=== PATIENT | male | born 1970 | race African-American/Black ===

== ENCOUNTER 2016-11-28 09:29 | Inpatient (IN) | payer OTHER ==
[~2016-11-28] VITALS: Ht 185.4 cm; Wt 108.4 kg
[~2016-11-28 09:29] MED LIST: ASACOL HD800 MG ORAL; DILAUDID4 MG ORAL; HYDROMORPHONE HC4 M1 PO; LEVAQUIN500 MG ORAL; METRONIDAZOLE500 MG ORAL; NKM; ONDANSETRON ODT4 MG ORAL; PERCOCET1 TAB ORAL; PREDNISOLO15 MG/5 M1 ORAL; PREDNISONE20 MG ORAL; ZOFRAN ODT4 MG ORAL
--- NOTE | 2016-11-28 09:50 | Emergency Room Report ---
History of Present Illness General Chief Complaint: Abdominal Pain Source: Patient, Medical Record Present Illness HPI Patient presents with abdominal pain and vomiting. He also has loose stools, though denies bloody diarrhea. He has a history of Crohn's disease. He stopped the prednisone taper 2 weeks ago. Denies any blood in his stool. He's not had any fevers. The pain is severe this morning and right lower quadrant. He is status post appendectomy. Not vomiting blood but difficulty keeping down food or liquids. Is not taking any medication for his Crohn's at the moment. Unable to keep down any pain medication. R flank and CVA area radiates down back. Pain is severe 10/10 constant. He was last hospitalized in [place] around [facility], [place]. No URI sy, chest pain, cough, rashes, headache. The pain causes him to be anxious. Allergies: Coded Allergies: MORPHINE (Verified Allergy, Unknown, 11/28/16) KETOROLAC TROMETHAMINE (Unverified Adverse Reaction, Unknown, TACHYCARDIA , 09/28/14) Patient History Past Medical History: see triage record Past Surgical History: other - abdominal surgery Social History Narrative with sig other Reviewed Nursing Documentation: PMH: Agreed, PSxH: Agreed Nursing Documentation-PMH Past Medical History: No History, Except For Hx Cardiac Problems: No Hx Cancer: No Hx Gastrointestinal Problems: Yes - Crohns Hx Neurological Problems: No Review of Systems All Other Systems: negative except mentioned in HPI Physical Exam Vital Signs Date Time Temp Pulse Resp B/P Pulse Ox O2 Delivery O2 Flow Rate FiO2 11/28/16 09:30 97.5 50 17 144/88 99 Room Air Sp02 EP Interpretation: reviewed, normal General Appearance: GCS 15, non-toxic, severe distress, other - writhing in pain Head: normocephalic, atraumatic Eyes: bilateral eye EOMI, bilateral eye PERRL, bilateral eye normal inspection ENT: moist mucus membranes Neck: supple Respiratory: chest non-tender, lungs clear, normal breath sounds Cardiovascular #1: regular rate, rhythm Cardiovascular #2: 2+ radial (R) Gastrointestinal: soft, non-distended, no guarding, tenderness Musculoskeletal: back normal, gait/station normal, normal range of motion Neurologic: alert, oriented x3, grossly normal Psychiatric: anxious - and in pain Skin: normal inspection, warm/dry Medical Decision Making Diagnostic Impression: Primary Impression: Crohn's colitis Qualified Codes: K50.10 - Crohn's disease of large intestine without complications Additional Impressions: Microscopic hematuria Possible narcoic seeking behavior ER Course Patient presents with severe abdominal pain -RLQ with h/o Crohn's disease. Ddx ; PUD, diverticulitis, UTI, exacerbation of Crohn's, gastroenteritis, opiate seeking amongst others. Severe pain need emergent evaluation with labs, UA, xrays. Treatment with solumedrol, IV hydration and analgesia. Solumedrol given for crohns. IV hydration. Labs significant for normal WBC and H/H. Patient still with significant pain. Unable to perform x-rays due to writhing in pain. Abd film unremarkable. Patient requiring high doses of dilaudid for pain control. Due to hematuria and pain, CT ordered with IV and PO contrast. Patient had some vomiting after po contrast. Generally improved. Needs observation due to pain and Crohn's. Admit med Dr. Pérez. Laboratory Tests Test 11/28/16 10:10 White Blood Count 8.5 K/UL (4.8-10.8) Red Blood Count 5.13 M/UL (4.70-6.10) Hemoglobin 15.7 G/DL (14.2-18.0) Hematocrit 47.0 % (42.0-52.0) Mean Corpuscular Volume 92 FL (80-99) Mean Corpuscular Hemoglobin 30.6 PG (27.0-31.0) Mean Corpuscular Hemoglobin Concent 33.4 G/DL (32.0-36.0) Red Cell Distribution Width 11.6 % (11.6-14.8) Platelet Count 165 K/UL (150-450) Mean Platelet Volume 7.2 FL (6.5-10.1) Neutrophils (%) (Auto) % (45.0-75.0) Lymphocytes (%) (Auto) % (20.0-45.0) Monocytes (%) (Auto) % (1.0-10.0) Eosinophils (%) (Auto) % (0.0-3.0) Basophils (%) (Auto) % (0.0-2.0) Differential Total Cells Counted 100 Neutrophils % (Manual) 86 % (45-75) H Lymphocytes % (Manual) 7 % (20-45) L Monocytes % (Manual) 7 % (1-10) Eosinophils % (Manual) 0 % (0-3) Basophils % (Manual) 0 % (0-2) Band Neutrophils 0 % (0-8) Platelet Estimate Adequate Platelet Morphology Normal Red Blood Cell Morphology Normal Prothrombin Time 10.0 SEC (9.30-11.50) Prothrombin Time INR 1.0 (0.9-1.1) PTT 24 SEC (23-33) Urine Color Pale yellow Urine Appearance Clear Urine pH 5 (4.5-8.0) Urine Specific [place] 1.025 (1.005-1.035) Urine Protein Negative (NEGATIVE) Urine Glucose (UA) Negative (NEGATIVE) Urine Ketones Negative (NEGATIVE) Urine Occult Blood 3+ (NEGATIVE) H Urine Nitrite Negative (NEGATIVE) Urine Bilirubin Negative (NEGATIVE) Urine Urobilinogen Normal MG/DL (0.0-1.0) Urine Leukocyte Esterase 1+ (NEGATIVE) H Urine RBC 5-10 /HPF (0 - 0) H Urine WBC 2-4 /HPF (0 - 0) Urine Squamous Epithelial Cells Occasional /LPF Urine Bacteria Few /HPF (NONE) Sodium Level 142 mEQ/L (135-145) Potassium Level 3.7 mEQ/L (3.4-4.9) Chloride Level 101 mEQ/L (98-107) Carbon Dioxide Level 24 mEQ/L (20-30) Anion Gap 17 (5-15) H Blood Urea Nitrogen 7 mg/dL (7-23) Creatinine 1.1 mg/dL (0.7-1.2) Estimate Glomerular Filtration Rate > 60 mL/min (>60) Glucose Level 140 mg/dL (74-106) H Calcium Level 9.4 mg/dL (8.6-10.2) Total Bilirubin 1.2 mg/dL (0.0-1.2) Direct Bilirubin 0.2 mg/dL (0.1-0.3) Aspartate Amino Transferase (AST) 22 U/L (5-40) Alanine Aminotransferase (ALT) 28 U/L (3-41) Alkaline Phosphatase 56 U/L (40-129) Total Creatine Kinase 191 U/L (38-174) H Total Protein 7.4 g/dL (6.6-8.7) Albumin 4.4 g/dL (3.5-5.2) Globulin 3.0 g/dL Albumin/Globulin Ratio 1.4 (1.0-2.7) Lipase 25 U/L (< 60) Urine Opiates Screen Negative (NEGATIVE) Urine Barbiturates Screen Negative (NEGATIVE) Phencyclidine (PCP) Screen Negative (NEGATIVE) Urine Amphetamines Screen Negative (NEGATIVE) Urine Benzodiazepines Screen Negative (NEGATIVE) Urine Cocaine Screen Negative (NEGATIVE) Urine Marijuana (THC) Screen Positive (NEGATIVE) H EKG Diagnostic Results Rate: normal Rhythm: NSR ST Segments: no acute changes Rhythm Strip Diag. Results EP Interpretation: yes Rhythm: NSR, no PVC's, no ectopy, other Other X-Ray Diagnostic Results Other X-Ray Diagnostic Results : X-Ray Ordered: abdomen EP Interpretation: Yes Findings: other - NSBGP, no obstruction, no masses - metalic objects pelvis - prior surgery Number of Views: 1 CT/MRI/US Diagnostic Results CT/MRI/US Diagnostic Results : Imaging Test Ordered: abd abd pelvis Impression thick bladder Impression: Bladder is not distended and therefore difficult to evaluate. Evidence of previous surgery. Otherwise negative. No change from previous examination. Last Vital Signs Date Time Temp Pulse Resp B/P Pulse Ox O2 Delivery O2 Flow Rate FiO2 11/28/16 16:40 97.3 73 18 151/85 98 Room Air Status: improved Disposition: ADMITTED INPATIENT Condition: Serious Chirag Hickey M.D. Nov 28, 2016 09:50
[2016-11-28 10:00] VITALS: BP 166/92
[2016-11-28] MEDS ORDERED: HYDROmorphone 1mg/ml Carpuject IVP ONE ×3 (10:00→13:15)
[2016-11-28] MEDS ORDERED: Solu-MEDROL 125mg Inj IVP ONE (10:00)
[2016-11-28 10:25] LABS: APPEARANCE,URINE CLEAR; KETONES,URINE NEGATIVE (NEGATIVE); LEUKOCYTE ESTERASE ,URINE 1+ (NEGATIVE); NITRITE,URINE NEGATIVE (NEGATIVE); PH,URINE 5 (4.5-8.0); PROTEIN,URINE NEGATIVE (NEGATIVE); UROBILINOGEN,URINE NORMAL MG/DL (0.0-1.0)
[2016-11-28 10:26] LABS: MEAN CORPUSCULAR HEMOGLOBIN 30.6 PG (27.0-31.0); MEAN CORPUSCULAR HGB CONC 33.4 G/DL (32.0-36.0); MEAN CORPUSCULAR VOLUME 92 FL (80-99); MEAN PLATELET VOLUME 7.2 FL (6.5-10.1); PLATELET COUNT 165 K/UL (150-450); RED BLOOD COUNT 5.13 M/UL (4.70-6.10); RED CELL DISTRIBUTION WIDTH 11.6 % (11.6-14.8); WHITE BLOOD COUNT 8.5 K/UL (4.8-10.8)
[2016-11-28 10:37] LABS: BACTERIA,URINE FEW /HPF; SQUAMOUS EPITHELIAL CELL,UR OCCASIONAL /LPF (NONE/OCC)
[2016-11-28 10:39] LABS: ALANINE AMINOTRANSFERASE 28 U/L (3-41); ALBUMIN/GLOBULIN RATIO 1.4 (1.0-2.7); ANION GAP 17 (5-15); ASPARTATE AMINO TRANSFERASE 22 U/L (5-40); CALCIUM 9.4 mg/dL (8.6-10.2); CARBON DIOXIDE 24 mEQ/L (20-30); CHLORIDE 101 mEQ/L (98-107); CREATININE 1.1 mg/dL (0.7-1.2); GLOMERULAR FILTRATION RATE > 60 mL/min (>60); HEMOLYSIS 4; LIPASE 25 U/L (< 60); POTASSIUM 3.7 mEQ/L (3.4-4.9); SODIUM 142 mEQ/L (135-145); TOTAL PROTEIN 7.4 g/dL (6.6-8.7)
[2016-11-28 10:51] LABS: BAND NEUTROPHILS % (MANUAL) 0 % (0-8); BASOPHILS % (MANUAL) 0 % (0-2); EOSINOPHILS % (MANUAL) 0 % (0-3); LYMPHOCYTES % (MANUAL) 7 % (20-45); NEUTROPHILS % (MANUAL) 86 % (45-75); PLATELET ESTIMATE ADEQUATE; PLATELET MORPHOLOGY NORMAL; TOTAL CELLS COUNTED 100
[2016-11-28 10:57] LABS: BILIRUBIN,DIRECT 0.2 mg/dL (0.1-0.3)
[2016-11-28 12:00] VITALS: BP 158/88
[2016-11-28] MEDS ORDERED: Mylanta II UD 30ml ORAL PRN (13:15)
[2016-11-28] MEDS ORDERED: HYDROmorphone 4mg tab ORAL PRN ×2 (13:15→22:30)
[2016-11-28] MEDS ORDERED: Miralax 17gm pkt ORAL PRN (13:15)
[2016-11-28] MEDS ORDERED: Nitroglycerin Subl 0.4mg tab (Bottle Of 25) SL PRN (13:15)
[2016-11-28 15:17] VITALS: BP 160/93
[2016-11-28 16:40] VITALS: BP 151/85
[2016-11-28] MEDS: D5 1/2NS 1,000 ML IV SCH (17:15)
[2016-11-28] MEDS: Piperacillin/Tazobactam 3.375 GM in NS 110 ML IVPB SCH (18:40)
[2016-11-28] MEDS ORDERED: Tums 500mg ORAL PRN (19:15)
[2016-11-28 20:00] VITALS: BP 145/98
[2016-11-28] MEDS: Heparin 5000 units/ml inj SUBQ SCH (21:33)
[2016-11-28] MEDS ORDERED: Tubing IV Secondary IV ONE (21:53)
[2016-11-28] MEDS ORDERED: D5 1/2NS 1000ml IV ONE (21:53)
--- NOTE | 2016-11-28 23:51 | History and Physical ---
History of Present Illness General Date patient seen: Nov 28, 2016 Reason for Hospitalization: Abdominal Pain Present Illness HPI 46 yo gentleman with pmhx significant for chron's disease. Patient presents to [facility] ER with severe abdominal pain and complaints of severe and longstanding diarrhea with bloody stool. Patient states that his abomdinal pain has been gradually getting worse over the past 5 days. Patient says the abdominal pain is generalized, not radiating to back or chest, no complaints of vomiting but patient says he has been having diarrhea for a few weeks as well. Patient is being admitted for observation in order to be seen by GI specialist on acute basis and we will have further orders pending their evaluation. Allergies: Coded Allergies: MORPHINE (Verified Allergy, Unknown, 11/28/16) KETOROLAC TROMETHAMINE (Unverified Adverse Reaction, Unknown, TACHYCARDIA , 09/28/14) Medication History Scheduled Levofloxacin* (Levaquin*), 500 MG ORAL DAILY Mesalamine (Asacol Hd), 1,600 MG ORAL THREE TIMES A DAY Metronidazole* (Flagyl*), 500 MG ORAL EVERY 8 HOURS No Known Medications* (NKM - No Known Medications*), 0 ., (Reported) Ondansetron Odt* (Zofran Odt*), 4 MG ORAL EVERY 8 HOURS Prednisone* (Prednisone*), 10 MG ORAL DAILY, (Reported) Prednisone* (Prednisone*), 40 MG ORAL DAILY Scheduled PRN Hydromorphone HCl (Dilaudid), 4 MG ORAL TID PRN for pr, (Reported) Ondansetron Odt* (Zofran Odt*), 4 MG ORAL Q8H PRN for Nausea & Vomiting, ( Reported) Oxycodone/Acetaminophen (Oxycodone-Acetaminophen 5-325), 1 TAB ORAL Q6HR PRN for For Pain Miscellaneous Medications Hydromorphone Hcl (Hydromorphone Hcl), 4 MG PO, (Reported) Patient History Healthcare decision maker Resuscitation status Full Code Advanced Directive on File Past Medical/Surgical History Past Medical/Surgical History: (1) Abdominal pain (2) Crohn's colitis (3) Opioid dependence (4) Hyponatremia (5) Crohn's colitis Review of Systems Constitutional: Reports: fever, malaise, weakness Gastrointestinal: Reports: abdominal pain, diarrhea Physical Exam General Appearance: no apparent distress Lines, tubes and drains: peripheral HEENT: normocephalic, atraumatic, PERRL Neck: non-tender, normal alignment, supple, normal inspection Respiratory/Chest: chest wall non-tender, normal breath sounds, no respiratory distress Breasts: no masses Cardiovascular/Chest: normal peripheral pulses, normal rate, regular rhythm, no JVD Abdomen: hypoactive bowel sounds, distended, guarding, rebound, tender Genitourinary/Rectal: normal genital exam, normal rectal exam Extremities: normal range of motion, non-tender, normal inspection Skin Exam: normal pigmentation, warm/dry 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 normal, no motor/sensory deficits Last 24 Hour Vital Signs Date Time Temp Pulse Resp B/P Pulse Ox O2 Delivery O2 Flow Rate FiO2 11/28/16 20:00 98.4 96 16 145/98 95 Room Air 11/28/16 16:40 97.3 73 18 151/85 98 Room Air 11/28/16 16:02 68 14 160/93 99 Room Air 11/28/16 15:17 98.1 68 14 160/93 99 Room Air 11/28/16 12:00 98.2 78 17 158/88 96 Room Air 11/28/16 10:24 97.5 11/28/16 10:24 97.5 11/28/16 10:24 97.5 11/28/16 10:24 97.5 11/28/16 10:00 98.0 88 18 166/92 99 Room Air 11/28/16 09:30 97.5 50 17 144/88 99 Room Air Laboratory Tests Test 11/28/16 10:10 White Blood Count 8.5 K/UL (4.8-10.8) Red Blood Count 5.13 M/UL (4.70-6.10) Hemoglobin 15.7 G/DL (14.2-18.0) Hematocrit 47.0 % (42.0-52.0) Mean Corpuscular Volume 92 FL (80-99) Mean Corpuscular Hemoglobin 30.6 PG (27.0-31.0) Mean Corpuscular Hemoglobin Concent 33.4 G/DL (32.0-36.0) Red Cell Distribution Width 11.6 % (11.6-14.8) Platelet Count 165 K/UL (150-450) Mean Platelet Volume 7.2 FL (6.5-10.1) Neutrophils (%) (Auto) % (45.0-75.0) Lymphocytes (%) (Auto) % (20.0-45.0) Monocytes (%) (Auto) % (1.0-10.0) Eosinophils (%) (Auto) % (0.0-3.0) Basophils (%) (Auto) % (0.0-2.0) Differential Total Cells Counted 100 Neutrophils % (Manual) 86 % (45-75) H Lymphocytes % (Manual) 7 % (20-45) L Monocytes % (Manual) 7 % (1-10) Eosinophils % (Manual) 0 % (0-3) Basophils % (Manual) 0 % (0-2) Band Neutrophils 0 % (0-8) Platelet Estimate Adequate Platelet Morphology Normal Red Blood Cell Morphology Normal Prothrombin Time 10.0 SEC (9.30-11.50) Prothromb Time International Ratio 1.0 (0.9-1.1) Activated Partial Thromboplast Time 24 SEC (23-33) Urine Color Pale yellow Urine Appearance Clear Urine pH 5 (4.5-8.0) Urine Specific [place] 1.025 (1.005-1.035) Urine Protein Negative (NEGATIVE) Urine Glucose (UA) Negative (NEGATIVE) Urine Ketones Negative (NEGATIVE) Urine Occult Blood 3+ (NEGATIVE) H Urine Nitrite Negative (NEGATIVE) Urine Bilirubin Negative (NEGATIVE) Urine Urobilinogen Normal MG/DL (0.0-1.0) Urine Leukocyte Esterase 1+ (NEGATIVE) H Urine RBC 5-10 /HPF (0 - 0) H Urine WBC 2-4 /HPF (0 - 0) Urine Squamous Epithelial Cells Occasional /LPF Urine Bacteria Few /HPF (NONE) Sodium Level 142 mEQ/L (135-145) Potassium Level 3.7 mEQ/L (3.4-4.9) Chloride Level 101 mEQ/L (98-107) Carbon Dioxide Level 24 mEQ/L (20-30) Anion Gap 17 (5-15) H Blood Urea Nitrogen 7 mg/dL (7-23) Creatinine 1.1 mg/dL (0.7-1.2) Estimat Glomerular Filtration Rate > 60 mL/min (>60) Glucose Level 140 mg/dL (74-106) H Calcium Level 9.4 mg/dL (8.6-10.2) Total Bilirubin 1.2 mg/dL (0.0-1.2) Direct Bilirubin 0.2 mg/dL (0.1-0.3) Aspartate Amino Transf (AST/SGOT) 22 U/L (5-40) Alanine Aminotransferase (ALT/SGPT) 28 U/L (3-41) Alkaline Phosphatase 56 U/L (40-129) Total Creatine Kinase 191 U/L (38-174) H Total Protein 7.4 g/dL (6.6-8.7) Albumin 4.4 g/dL (3.5-5.2) Globulin 3.0 g/dL Albumin/Globulin Ratio 1.4 (1.0-2.7) Lipase 25 U/L (< 60) Urine Opiates Screen Negative (NEGATIVE) Urine Barbiturates Screen Negative (NEGATIVE) Phencyclidine (PCP) Screen Negative (NEGATIVE) Urine Amphetamines Screen Negative (NEGATIVE) Urine Benzodiazepines Screen Negative (NEGATIVE) Urine Cocaine Screen Negative (NEGATIVE) Urine Marijuana (THC) Screen Positive (NEGATIVE) H Height (Feet): 6 Height (Inches): 1.00 Weight (Pounds): 239 Medications Current Medications Medications (Trade) Dose Ordered Sig/Isaura Route PRN Reason Start Time Stop Time Status Last Admin Dose Admin Acetaminophen (Tylenol) 650 mg Q4H PRN ORAL fever 11/28/16 13:15 12/28/16 13:14 Al Hydroxide/Mg Hydroxide (Mylanta II) 30 ml Q6H PRN ORAL dyspepsia 11/28/16 13:15 12/28/16 13:14 11/28/16 18:39 Calcium Carbonate (Tums) 1,000 mg Q4H PRN ORAL for heartburn 11/28/16 19:15 12/28/16 19:14 Dextrose STAT PRN IV Hypoglycemia 11/28/16 13:15 12/28/16 13:14 Dextrose/Sodium Chloride (D5 0.45% NS) 1,000 ml @ 75 mls/hr [id number] IV 11/28/16 17:00 12/28/16 16:59 11/28/16 17:15 Diphenhydramine HCl (Benadryl) 25 mg Q6H PRN ORAL Itching/Pruritis 11/28/16 13:15 12/28/16 13:14 11/28/16 21:59 Heparin Sodium (Porcine) (Heparin 5000 units/ml) 5,000 units EVERY 12 HOURS SUBQ 11/28/16 21:00 12/28/16 20:59 11/28/16 21:33 Hydromorphone HCl (Dilaudid) 2 mg Q3H PRN IVP For Pain 11/28/16 21:15 12/05/16 21:14 11/28/16 21:30 Nitroglycerin (Ntg) 0.4 mg Q5M X 3 DOSES PRN SL Prn Chest Pain 11/28/16 13:15 12/28/16 13:14 Ondansetron HCl (Zofran) 4 mg Q6H PRN IVP Nausea & Vomiting 11/28/16 13:15 12/28/16 13:14 11/28/16 18:55 Piperacillin Sod/ Tazobactam Sod/ Sodium Chloride (Zosyn/Sodium Chloride) 110 ml @ 27.5 mls/hr EVERY 8 HOURS IVPB 11/28/16 19:00 12/05/16 18:59 11/28/16 18:40 Polyethylene Glycol (Miralax) 17 gm HSPRN PRN ORAL Constipation 11/28/16 13:15 12/28/16 13:14 Temazepam (Restoril) 15 mg HSPRN PRN ORAL Insomnia 11/28/16 13:15 12/05/16 13:14 11/28/16 21:35 Assessment/Plan Status: stable, progressing Assessment/Plan Assessment Acute Abdominal Pain Hx Chrohn's disease Diarrhea Plan GI consultation requested Proton pump inhibition IVF hydration gentle Monitor electrolytes Pain control HARSHAL JUDGE Nov 28, 2016 23:51
[2016-11-29] VITALS: BP 134/81
[2016-11-29 04:00] VITALS: BP 137/88
[2016-11-29] MEDS: D5 1/2NS 1,000 ML IV SCH ×2 (05:32→21:08)
[2016-11-29] MEDS: Piperacillin/Tazobactam 3.375 GM in NS 110 ML IVPB SCH ×3 (05:32→23:52)
[2016-11-29 08:02] LABS: ALANINE AMINOTRANSFERASE 24 U/L (3-41); ALBUMIN/GLOBULIN RATIO 1.3 (1.0-2.7); AMYLASE 60 U/L (10-110); ANION GAP 17 (5-15); ASPARTATE AMINO TRANSFERASE 24 U/L (5-40); CALCIUM 9.1 mg/dL (8.6-10.2); CARBON DIOXIDE 23 mEQ/L (20-30); CHLORIDE 97 mEQ/L (98-107); GLOMERULAR FILTRATION RATE > 60 mL/min (>60); HEMOLYSIS 38; LIPASE 21 U/L (< 60); POTASSIUM 3.9 mEQ/L (3.4-4.9); SODIUM 137 mEQ/L (135-145); TOTAL PROTEIN 7.1 g/dL (6.6-8.7)
[2016-11-29 08:18] LABS: BILIRUBIN,DIRECT 0.2 mg/dL (0.1-0.3)
[2016-11-29 08:20] VITALS: BP 147/83
[2016-11-29] MEDS: Heparin 5000 units/ml inj SUBQ SCH ×2 (08:20→20:12)
--- NOTE | 2016-11-29 09:17 | Diagnostic Imaging Report ---
Indication: ABD PAIN Technique: CT scan of the abdomen and pelvis was performed from the diaphragms to the symphysis pubis with intravenous contrast material and oral contrast material. Biphasic liver scanning was employed. 5 mm sections were generated. Axial, coronal, and sagittal images are presented. Dose: Total Dose Length Product - DLP [address] Dose Index - CTDIvol(s) 18.84 mGy. Comparison: 03/18/2015 Findings: The liver and gallbladder are unremarkable. The spleen is normal. The pancreas is unremarkable. There are clips anterior to the right kidney in the retroperitoneum. Adrenal glands are unremarkable. The kidneys are normal. Aorta and inferior vena cava are normal caliber. There is a suture in the region of the cecum, likely from previous appendectomy. The bladder is underdistended. Bladder wall is difficult to evaluate therefore. Prostate and seminal vesicles are unremarkable. Impression: Bladder is not distended and therefore difficult to evaluate. Evidence of previous surgery. Otherwise negative. No change from previous examination. This agrees with pulmonary reading with some difference. The CT scanner at [facility] is accredited by the [employer] [place] and the scans are performed using protocols designed to limit radiation exposure to as low as reasonably achievable to attain images of sufficient resolution adequate for diagnostic evaluation.
[2016-11-29 11:03] LABS: BASOPHILS % (AUTO) 1.2 % (0.0-2.0); EOSINOPHILS % (AUTO) 0.1 % (0.0-3.0); LYMPHOCYTES % (AUTO) 22.3 % (20.0-45.0); MEAN CORPUSCULAR HEMOGLOBIN 30.7 PG (27.0-31.0); MEAN CORPUSCULAR HGB CONC 33.4 G/DL (32.0-36.0); MEAN CORPUSCULAR VOLUME 92 FL (80-99); MEAN PLATELET VOLUME 7.5 FL (6.5-10.1); MONOCYTES % (AUTO) 10.5 % (1.0-10.0); NEUTROPHILS % (AUTO) 66.1 % (45.0-75.0); PLATELET COUNT 143 K/UL (150-450); RED BLOOD COUNT 4.53 M/UL (4.70-6.10); WHITE BLOOD COUNT 6.7 K/UL (4.8-10.8)
[2016-11-29 11:28] VITALS: BP 128/66
[2016-11-29] MEDS ORDERED: D5 1/2NS 1000ml IV ONE (12:04)
--- NOTE | 2016-11-29 15:54 | General Progress Note ---
Assessment/Plan Assessment/Plan GI Consult Dictated Will check UGI/SBFT in am annabellejoaquín Coulter Subjective Allergies: Coded Allergies: MORPHINE (Verified Allergy, Unknown, 11/28/16) KETOROLAC TROMETHAMINE (Unverified Adverse Reaction, Unknown, TACHYCARDIA , 09/28/14) Objective Last 24 Hour Vital Signs Date Time Temp Pulse Resp B/P Pulse Ox O2 Delivery O2 Flow Rate FiO2 11/29/16 15:26 97.6 11/29/16 11:28 97.6 68 18 128/66 97 Room Air 11/29/16 08:20 97.7 55 19 147/83 96 Room Air 11/29/16 04:00 98.0 81 16 137/88 97 Room Air 11/29/16 00:00 97.9 84 16 134/81 96 Room Air 11/28/16 20:00 98.4 96 16 145/98 95 Room Air 11/28/16 16:40 97.3 73 18 151/85 98 Room Air 11/28/16 16:02 68 14 160/93 99 Room Air Intake and Output 11/28/16 11/29/16 19:00 07:00 Intake Total 1075 ml 1060.0 ml Balance 1075 ml 1060.0 ml Intake Oral 360 ml IV Total 1075 ml 700.0 ml # Voids 1 3 Laboratory Tests 11/29/16 07:00: Sodium Level 137, Potassium Level 3.9, Chloride Level 97L, Carbon Dioxide Level 23, Anion Gap 17H, Blood Urea Nitrogen 9, Creatinine 1.0, Estimat Glomerular Filtration Rate > 60, Glucose Level 113H, Calcium Level 9.1, Total Bilirubin 1.1 , Direct Bilirubin 0.2, Aspartate Amino Transf (AST/SGOT) 24, Alanine Aminotransferase (ALT/SGPT) 24, Alkaline Phosphatase 52, Total Protein 7.1, Albumin 4.1, Globulin 3.0, Albumin/Globulin Ratio 1.3, Amylase Level 60, Lipase 21 11/29/16 10:40: White Blood Count 6.7, Red Blood Count 4.53L, Hemoglobin 13.9L, Hematocrit 41.7L , Mean Corpuscular Volume 92, Mean Corpuscular Hemoglobin 30.7, Mean Corpuscular Hemoglobin Concent 33.4, Red Cell Distribution Width 12.0, Platelet Count 143L, Mean Platelet Volume 7.5, Neutrophils (%) (Auto) 66.1, Lymphocytes ( %) (Auto) 22.3, Monocytes (%) (Auto) 10.5H, Eosinophils (%) (Auto) 0.1, Basophils (%) (Auto) 1.2, Activated Partial Thromboplast Time 26 Height (Feet): 6 Height (Inches): 1.00 Weight (Pounds): 239 MCKENZIE COULTER Nov 29, 2016 15:54
[2016-11-29 16:00] VITALS: BP 153/75
[2016-11-29 19:00] VITALS: BP 153/85
--- NOTE | 2016-11-29 23:17 | Pulmonology Progress Note ---
Assessment/Plan Assessment/Plan Assessment/Plan Status: stable, progressing Assessment/Plan Assessment Acute Abdominal Pain Hx Chrohn's disease Diarrhea Plan GI consultation requested Proton pump inhibition IVF hydration gentle Monitor electrolytes Pain control Subjective ROS Limited/Unobtainable: No Gastrointestinal/Abdominal: Reports: bloating, diarrhea, nausea Allergies: Coded Allergies: MORPHINE (Verified Allergy, Unknown, 11/28/16) KETOROLAC TROMETHAMINE (Unverified Adverse Reaction, Unknown, TACHYCARDIA , 09/28/14) Objective Last 24 Hour Vital Signs Date Time Temp Pulse Resp B/P Pulse Ox O2 Delivery O2 Flow Rate FiO2 11/29/16 19:00 98.1 82 20 153/85 97 Room Air 11/29/16 16:00 98.2 79 20 153/75 94 Room Air 11/29/16 15:26 97.6 11/29/16 11:28 97.6 68 18 128/66 97 Room Air 11/29/16 08:20 97.7 55 19 147/83 96 Room Air 11/29/16 04:00 98.0 81 16 137/88 97 Room Air 11/29/16 00:00 97.9 84 16 134/81 96 Room Air Intake and Output 11/28/16 11/29/16 19:00 07:00 Intake Total 1075 ml 1060.0 ml Balance 1075 ml 1060.0 ml Intake Oral 360 ml IV Total 1075 ml 700.0 ml # Voids 1 3 General Appearance: no acute distress HEENT: normocephalic, atraumatic, PERRL Respiratory/Chest: chest wall non-tender, decreased breath sounds, accessory muscle use Cardiovascular: normal peripheral pulses, normal rate, regular rhythm, no JVD Abdomen: hyperactive bowel sounds, distended, guarding, tender, rebound tenderness Genitourinary: normal external genitalia Extremities: no cyanosis Skin: rash, lesions 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/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 II-XII grossly normal, no motor/sensory deficits Laboratory Tests 11/29/16 07:00: Sodium Level 137, Potassium Level 3.9, Chloride Level 97L, Carbon Dioxide Level 23, Anion Gap 17H, Blood Urea Nitrogen 9, Creatinine 1.0, Estimat Glomerular Filtration Rate > 60, Glucose Level 113H, Calcium Level 9.1, Total Bilirubin 1.1 , Direct Bilirubin 0.2, Aspartate Amino Transf (AST/SGOT) 24, Alanine Aminotransferase (ALT/SGPT) 24, Alkaline Phosphatase 52, Total Protein 7.1, Albumin 4.1, Globulin 3.0, Albumin/Globulin Ratio 1.3, Amylase Level 60, Lipase 21 11/29/16 10:40: White Blood Count 6.7, Red Blood Count 4.53L, Hemoglobin 13.9L, Hematocrit 41.7L , Mean Corpuscular Volume 92, Mean Corpuscular Hemoglobin 30.7, Mean Corpuscular Hemoglobin Concent 33.4, Red Cell Distribution Width 12.0, Platelet Count 143L, Mean Platelet Volume 7.5, Neutrophils (%) (Auto) 66.1, Lymphocytes ( %) (Auto) 22.3, Monocytes (%) (Auto) 10.5H, Eosinophils (%) (Auto) 0.1, Basophils (%) (Auto) 1.2, Activated Partial Thromboplast Time 26 Current Medications Medications (Trade) Dose Ordered Sig/Isaura Route PRN Reason Start Time Stop Time Status Last Admin Dose Admin Acetaminophen (Tylenol) 650 mg Q4H PRN ORAL fever 11/28/16 13:15 12/28/16 13:14 Al Hydroxide/Mg Hydroxide (Mylanta II) 30 ml Q6H PRN ORAL dyspepsia 11/28/16 13:15 12/28/16 13:14 11/28/16 18:39 Calcium Carbonate (Tums) 1,000 mg Q4H PRN ORAL for heartburn 11/28/16 19:15 12/28/16 19:14 11/29/16 04:08 Dextrose STAT PRN IV Hypoglycemia 11/28/16 13:15 12/28/16 13:14 Dextrose/Sodium Chloride (D5 0.45% NS) 1,000 ml @ 75 mls/hr [id number] IV 11/28/16 17:00 12/28/16 16:59 11/29/16 05:32 Diphenhydramine HCl (Benadryl) 25 mg Q6H PRN ORAL Itching/Pruritis 11/28/16 13:15 12/28/16 13:14 11/29/16 21:07 Heparin Sodium (Porcine) (Heparin 5000 units/ml) 5,000 units EVERY 12 HOURS SUBQ 11/28/16 21:00 12/28/16 20:59 11/29/16 08:20 Hydromorphone HCl (Dilaudid) 2 mg Q3H PRN IVP For Pain 11/28/16 21:15 12/05/16 21:14 11/29/16 21:02 Nitroglycerin (Ntg) 0.4 mg Q5M X 3 DOSES PRN SL Prn Chest Pain 11/28/16 13:15 12/28/16 13:14 Ondansetron HCl (Zofran) 4 mg Q6H PRN IVP Nausea & Vomiting 11/28/16 13:15 12/28/16 13:14 11/29/16 14:55 Piperacillin Sod/ Tazobactam Sod/ Sodium Chloride (Zosyn/Sodium Chloride) 110 ml @ 27.5 mls/hr EVERY 8 HOURS IVPB 11/28/16 19:00 12/05/16 18:59 11/29/16 13:38 Polyethylene Glycol (Miralax) 17 gm HSPRN PRN ORAL Constipation 11/28/16 13:15 12/28/16 13:14 Temazepam (Restoril) 15 mg HSPRN PRN ORAL Insomnia 11/28/16 13:15 12/05/16 13:14 11/28/16 21:35 HARSHAL JUDGE Nov 29, 2016 23:17
[2016-11-30] VITALS: BP 142/80
[2016-11-30 04:00] VITALS: BP 144/86
[2016-11-30] MEDS: Piperacillin/Tazobactam 3.375 GM in NS 110 ML IVPB SCH (05:50)
--- NOTE | 2016-11-30 08:58 | Consultation ---
DATE OF CONSULTATION: 11/29/2016 GASTROENTEROLOGY CONSULTATION CONSULTING PHYSICIAN: Hillary Coulter M.D. CHIEF COMPLAINT: Gastric distention. I was asked to see this patient by Dr. Geoffrey Blair for evaluation of Crohn's and abdominal pain. HISTORY OF PRESENT ILLNESS: The patient is a 46-year-old male who comes to [facility] with a longstanding history of Crohn's. The patient states that he has Crohn disease symptoms for many years, but he was actually diagnosed with Crohn's only three years ago. He was previously on steroids 10 mg a day, and pain medications. At some point, he was on Humira but this was discontinued two years ago because that was not covered by his insurance. He then went off of steroids for . . He denies any nausea, vomiting, or diarrhea. His last colonoscopy was four years ago. He cannot recall last endoscopy. He cannot recall having had a small bowel follow through. PAST MEDICAL HISTORY: Otherwise negative. FAMILY HISTORY: Positive for . SOCIAL HISTORY: The patient is engaged. 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 He smokes occasionally. He does not drink alcohol. REVIEW OF SYSTEMS: Otherwise negative. MEDICATIONS: See chart for details. PHYSICAL EXAMINATION: GENERAL: The patient is a pleasant, man, seen in his room. HEENT: Normocephalic and atraumatic. Sclerae are anicteric. Oropharynx is clear. NECK: Supple. CHEST: Clear to auscultation. CARDIOVASCULAR: Regular rhythm and rate. ABDOMEN: Soft and nontender. EXTREMITIES: Revealed no edema. LABORATORY DATA: Noted. ASSESSMENT: This patient presents with Crohn disease, but his extensive workup is somewhat unclear. He does not seem to be in any distress right now and in fact he is asking for solid foods and pain medications. I advised him that we will advance his diet slowly and we will obtain some preliminary studies, especially a small bowel follow through series . In the meantime, no adjustments in his medications were made and evaluation is fairly complete. If necessary, an endoscopy and colonoscopy will also be done to further evaluate his status. RECOMMENDATIONS: 1. Clear liquid diet. 2. Upper GI small bowel follow through series in the morning. 3. Further recommendations to follow. 4. Should get a sedimentation rate and CRP. Thank you for asking me to participate in the care of this patient. Hillary Coulter M.D. DR: SHERRI JOB#: [id number] CC:
--- NOTE | 2016-11-30 08:59 | Diagnostic Imaging Report ---
Indication: ABD PAIN. Technique: One view abdomen Comparison: 07/19/2009 Findings: The bowel gas pattern is nonobstructive. There are clips in the right side of the abdomen from previous surgery. Metallic densities are also noted over the pelvis, probably artifactual. The bones are unremarkable. There is no free fluid. Impression: Evidence of previous surgery. No acute abnormality..
--- NOTE | 2016-11-30 13:57 | Cardiology Report ---
APPROVED REPORT EKG Measurement Heart [id number] Normal sinus rhythm Normal ECG
--- NOTE | 2016-12-01 13:02 | Discharge Summary ---
Discharge Summary Hospital Course Date of Admission Nov 28, 2016 at 11:06 Date of Discharge Nov 30, 2016 at 06:30 Admitting Diagnosis Abdominal Pain HPI Sameer Obrien is a 46 year old male who was admitted on Nov 28, 2016 at 11:06 for Abdominal Pain Hospital Course dc summary #[id number] Discharge Discharge Disposition Patient signed AMA Discharge Diagnoses: Discharge Instructions Discharge Instructions Special Instructions I have been assigned to complete a D/C Summary on this account. I was not involved in the patient management Myrtle Dobbins NP ([place]) Dec 01, 2016 13:02
--- NOTE | 2016-12-02 01:18 | Discharge Summary 2 SIG ---
DATE OF ADMISSION: 11/28/2016 DATE OF SIGNING AGAINST MEDICAL ADVISE: 11/30/2016 REASON FOR ADMISSION: 46 years old male with abdominal pain and vomiting claimed that he had Crohn's disease, stopped his prednisone two weeks ago after tapering. He denied any fevers or chills. He reported severe pain in the right lower quadrant. He denied bloody diarrhea, but had loose stools. No vomiting. No difficulty eating. Not taking any medication for Crohn's at this time. Pain was severe, 10/10. Workup revealed unremarkable abdominal x-ray and unremarkable CT of the abdomen and pelvis. In the emergency room, the patient was started on IV fluids. Solu-Medrol given. Analgesia provided. The patient had no leukocytosis, stable hemoglobin and hematocrit. Electrolytes within normal limits. Urinalysis revealed 3+ occult blood. Toxicology screen was positive for marijuana. Lipase was negative. The patient needed admission secondary to pain management and Crohn's management. The patient admitted to Med/Surg floor. ADMITTING DIAGNOSES: 1. Crohn's colitis. 2. Microscopic hematuria. 3. Questionable narcotic-seeking behavior. HOSPITAL COURSE: The patient was admitted to the hospital. The patient was started on IV fluids. GI consult was requested. GI reviewed CT of the abdomen and pelvis as well as the abdominal x-ray, and started the patient on clear liquid diet. Pain management provided. Ordered inflammatory markers to be drawn on the morning as well as the upper GI small bowel followthrough. The patient was on empiric antibiotics. Antiemetic provided as needed. DVT prophylaxis provided. The patient decided to sign against medical advice early in the morning on 11/30/2016. The risks and consequences of signing against medical advice were discussed with the patient; however, the patient insisted on leaving and signed the form. FINAL DIAGNOSES: 1. Crohn's colitis. 2. Microscopic hematuria. 3. Possible narcotic-seeking behavior. 4. Abdominal pain. 5. Marijuana user. Geoffrey Blair M.D. I have been assigned to dictate discharge summary on this account and I was not involved in the patient's management. Myrtle Dobbins N.P. (Vanchtein) DR: ELGIN JOB#: [id number] CC: BILLY
== END 2016-11-30 06:30 | disposition left against medical advice (07) | DRG 245 ==
LOC: EMR 09:53 → 4E 11:06 → EDBEDREQ 15:43
DX: K50.10 Crohn's disease of large intestine without complications (principal); F12.90 Cannabis use, unspecified, uncomplicated; R31.29 Other microscopic hematuria; Z76.5 Malingerer [conscious simulation]
CPT/HCPCS: 36415; 74000; 74177; 80053; 80300; 81003; 82150; 82248; 82550; 83690; 85007; 85025; 85610; 85730; 93005; J2405

== ENCOUNTER 2017-01-24 06:50 | Emergency (ER) | payer OTHER ==
[~2017-01-24] VITALS: Ht 193 cm; Wt 104.3 kg
[2017-01-24 07:30] VITALS: BP 146/86
[2017-01-24] MEDS ORDERED: Solu-MEDROL 125mg Inj IVP ONE (07:30)
[2017-01-24 07:54] LABS: BASOPHILS % (AUTO) 0.6 % (0.0-2.0); EOSINOPHILS % (AUTO) 0.2 % (0.0-3.0); LYMPHOCYTES % (AUTO) 16.4 % (20.0-45.0); MEAN CORPUSCULAR HEMOGLOBIN 30.6 PG (27.0-31.0); MEAN CORPUSCULAR VOLUME 96 FL (80-99); MEAN PLATELET VOLUME 6.8 FL (6.5-10.1); MONOCYTES % (AUTO) 5.3 % (1.0-10.0); NEUTROPHILS % (AUTO) 77.5 % (45.0-75.0); PLATELET COUNT 184 K/UL (150-450); RED BLOOD COUNT 5.11 M/UL (4.70-6.10)
[2017-01-24 08:00] VITALS: BP 140/80
[2017-01-24] MEDS ORDERED: HYDROmorphone 2 MG in NS 55 ML IV ONE (08:00)
[2017-01-24 08:02] LABS: ALANINE AMINOTRANSFERASE 42 U/L (3-41); ALBUMIN/GLOBULIN RATIO 1.5 (1.0-2.7); ANION GAP 15 (5-15); ASPARTATE AMINO TRANSFERASE 35 U/L (5-40); CALCIUM 9.8 mg/dL (8.6-10.2); CARBON DIOXIDE 27 mEQ/L (20-30); CHLORIDE 101 mEQ/L (98-107); CREATININE 1.1 mg/dL (0.7-1.2); GLOMERULAR FILTRATION RATE > 60 mL/min (>60); HEMOLYSIS 13; LIPASE 30 U/L (< 60); POTASSIUM 4.1 mEQ/L (3.4-4.9); SODIUM 143 mEQ/L (135-145); TOTAL PROTEIN 7.5 g/dL (6.6-8.7)
[2017-01-24] MEDS ORDERED: DiphenhydrAMINE 50mg/ml Inj IVP ONE ×2 (08:15→08:45)
[2017-01-24] MEDS ORDERED: ACETAMINOPHEN-1 EAC1 ORAL (08:27)
[2017-01-24 08:32] VITALS: BP 133/104
[2017-01-24] MEDS ORDERED: HYDROmorphone 1mg/ml Carpuject IVP ONE (08:45)
[2017-01-24 09:02] VITALS: BP 119/71
[2017-01-24 10:02] VITALS: BP 130/71
--- NOTE | 2017-01-27 02:51 | Emergency Room Report ---
History of Present Illness General Chief Complaint: Abdominal Pain Source: Patient Present Illness HPI Patient presents somewhat histrionic with diffuse abdominal pain Patient reports history of Crohn's disease feels that he is having a flareup Increased vomiting and diarrhea Denies any fevers denies any chest pressures of breath abdominal pain is 10 out of 10 Diffuse and cramping Denies any dysuria frequency denies any trauma Patient has not been on his medications Allergies: Coded Allergies: MORPHINE (Verified Allergy, Unknown, 11/28/16) KETOROLAC TROMETHAMINE (Unverified Adverse Reaction, Unknown, TACHYCARDIA , 09/28/14) Patient History Past Medical History: see triage record Pertinent Family History: none Reviewed Nursing Documentation: PMH: Agreed, PSxH: Agreed Nursing Documentation-PMH Hx Cardiac Problems: No Hx Cancer: No Hx Gastrointestinal Problems: Yes - CRONH'S DISEASE Hx Neurological Problems: No Review of Systems All Other Systems: negative except mentioned in HPI Physical Exam Vital Signs Date Time Temp Pulse Resp B/P Pulse Ox O2 Delivery O2 Flow Rate FiO2 01/24/17 06:56 98.1 67 20 149/85 100 Room Air Sp02 EP Interpretation: reviewed, normal General Appearance: moderate distress - Appears histrionic Head: normocephalic, atraumatic Eyes: bilateral eye EOMI, bilateral eye PERRL ENT: hearing grossly normal, normal pharynx, TMs + canals normal, uvula midline Neck: full range of motion, supple, no meningismus, no bony tend Respiratory: lungs clear, normal breath sounds, no rhonchi, no respiratory distress, no retraction, no accessory muscle use Cardiovascular #1: normal peripheral pulses, regular rate, rhythm, no edema, no gallop, no JVD, no murmur Gastrointestinal: normal bowel sounds, soft, no mass, no organomegaly, non- distended, no guarding, no hernia, no pulsatile mass, no rebound, tenderness - Diffusely Genitourinary: no CVA tenderness Musculoskeletal: normal inspection Neurologic: oriented x3, responsive, 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 tested, motor strength/ tone normal, sensory intact Psychiatric: mood/affect normal Skin: normal color, no rash, warm/dry, palpation normal Lymphatic: normal inspection, no adenopathy Medical Decision Making Diagnostic Impression: Primary Impression: Abdominal pain ER Course With the history exam and presentation, multiple differentials considered, including but not limited to appendicitis, gastritis, cholecystitis, diverticulitis Patient's baseline blood work is normal Patient has had previous admission with GI specialty consultation At this time patient has also had multiple previous CAT scan imaging given the soft abdomen I did not want to repeat this imaging, to reduce radiation exposure Patient is also allergic to morphine and Toradol, reducing the number of possible medications that can be given Patient did have his acute pain addressed in the emergency room I am concerned about his pain level and responds to Dilaudid medication He understands my concerns and is working on obtaining appropriate outpatient followup Labs Test 01/24/17 07:09 White Blood Count 7.0 K/UL (4.8-10.8) Red Blood Count 5.11 M/UL (4.70-6.10) Hemoglobin 15.6 G/DL (14.2-18.0) Hematocrit 48.8 % (42.0-52.0) Mean Corpuscular Volume 96 FL (80-99) Mean Corpuscular Hemoglobin 30.6 PG (27.0-31.0) Mean Corpuscular Hemoglobin Concent 32.0 G/DL (32.0-36.0) Red Cell Distribution Width 13.0 % (11.6-14.8) Platelet Count 184 K/UL (150-450) Mean Platelet Volume 6.8 FL (6.5-10.1) Neutrophils (%) (Auto) 77.5 % (45.0-75.0) Lymphocytes (%) (Auto) 16.4 % (20.0-45.0) Monocytes (%) (Auto) 5.3 % (1.0-10.0) Eosinophils (%) (Auto) 0.2 % (0.0-3.0) Basophils (%) (Auto) 0.6 % (0.0-2.0) Sodium Level 143 mEQ/L (135-145) Potassium Level 4.1 mEQ/L (3.4-4.9) Chloride Level 101 mEQ/L (98-107) Carbon Dioxide Level 27 mEQ/L (20-30) Anion Gap 15 (5-15) Blood Urea Nitrogen 12 mg/dL (7-23) Creatinine 1.1 mg/dL (0.7-1.2) Estimat Glomerular Filtration Rate > 60 mL/min (>60) Glucose Level 129 mg/dL (74-106) Calcium Level 9.8 mg/dL (8.6-10.2) Total Bilirubin 0.7 mg/dL (0.0-1.2) Aspartate Amino Transf (AST/SGOT) 35 U/L (5-40) Alanine Aminotransferase (ALT/SGPT) 42 U/L (3-41) Alkaline Phosphatase 62 U/L (40-129) Total Protein 7.5 g/dL (6.6-8.7) Albumin 4.5 g/dL (3.5-5.2) Globulin 3.0 g/dL Albumin/Globulin Ratio 1.5 (1.0-2.7) Lipase 30 U/L (< 60) Last Vital Signs Date Time Temp Pulse Resp B/P Pulse Ox O2 Delivery O2 Flow Rate FiO2 01/24/17 10:02 71 18 130/71 98 Room Air 01/24/17 06:56 98.1 Status: improved Disposition: HOME, SELF-CARE Condition: Improved Scripts Acetaminophen With Codeine (T#3) (TYLENOL #3 TAB*) Y Tab 1 TAB ORAL Q8H Y for For Pain, #10 TAB Prov: MAHNAZ MEAD D.O. 01/24/17 Referrals: NIKIA MCDOWELL,REFERRING (PCP) Patient Instructions: Abdominal Pain, Adult Additional Instructions: Patient is provided with the discharge instructions notified to follow up with primary doctor in the next 2-3 days otherwise return to the er with any worsening symptoms. Please note that this report is being documented using DRAGON technology. This can lead to erroneous entry secondary to incorrect interpretation by the dictating instrument. MAHNAZ MEAD D.O. January 27, 2017 02:51
== END 2017-01-24 10:02 | disposition home or self-care (01) ==
LOC: EMR 07:15
DX: R10.9 Unspecified abdominal pain (principal); K50.90 Crohn's disease, unspecified, without complications; Z88.6 Allergy status to analgesic agent
CPT/HCPCS: 36415; 80053; 83690; 85025; 96374; 96375; 99284; J1170; J1200; J2405; J2930